=== PATIENT | female | born 1995 | race Caucasian/White ===

== ENCOUNTER 2016-09-14 15:17 | Emergency (ER) | payer BC ==
[~2016-09-14] VITALS: Ht 172.7 cm; Wt 56.2 kg
[2016-09-14] MEDS ORDERED: BIRTH CONTROL (15:25)
[2016-09-14] MEDS ORDERED: NS 1,000 ML IV SCH (16:00)
[2016-09-14] MEDS ORDERED: KETOROLAC 30 MG/ML VIAL (J1885) IV ONE (16:00)
[2016-09-14] MEDS ORDERED: ONDANSETRON 4MG/2ML VIAL (J2405) IV ONE (16:00)
[2016-09-14 17:15] LABS: BASO % 0.6 % (0.0-1.0); EOS % 1.5 % (0.0-3.0); LARGE UNSTAINED CELL # 0.1 K/mm3 (0.0-0.4); LARGE UNSTAINED CELL % 2.3 % (0.0-4.0); LYMPH # 1.6 K/mm3 (1.5-6.5); LYMPH % 46.6 % (24.0-44.0); MEAN CORPUSCULAR HEMOGLOBIN 30.8 pg (27.0-33.0); MEAN CORPUSCULAR HGB CONC 34.2 g/dl (32.0-36.5); MONO # 0.2 K/mm3 (0.0-0.8); MONO % 5.4 % (0.0-5.0); NEUTROPHILS # 1.5 K/mm3 (1.8-7.7); NEUTROPHILS % 43.5 % (36.0-66.0); PLATELET COUNT, AUTOMATED 246 k/mm3 (150-450); WHITE BLOOD COUNT 3.4 K/mm3 (4.0-10.0)
[2016-09-14] MEDS ORDERED: MORPHINE 4 MG/ML 1ML SYRINGE IV ONE (17:30)
[2016-09-14 17:31] LABS: CONTROL LINE HCG INT CTR LINE PRESENT
[2016-09-14 17:39] LABS: ALBUMIN 3.7 GM/DL (3.2-5.2); ALBUMIN/GLOBULIN RATIO 1.09 (1.00-1.93); ALKALINE PHOSPHATASE 47 U/L (45-117); ALT/SGPT 14 U/L (12-78); ANION GAP 7 MEQ/L (8-16); AST/SGOT 9 U/L (15-37); BILIRUBIN,DIRECT < 0.1 MG/DL (0.0-0.2); BILIRUBIN,TOTAL 0.3 MG/DL (0.2-1.0); BLOOD UREA NITROGEN 8 MG/DL (7-18); CALCIUM LEVEL 8.6 MG/DL (8.5-10.1); CARBON DIOXIDE LEVEL 27 MEQ/L (21-32); CHLORIDE LEVEL 109 MEQ/L (98-107); CREATININE FOR GFR 0.69 MG/DL (0.55-1.02); GLOMERULAR FILTRATION RATE > 60.0 (>60); GLUCOSE, FASTING 89 MG/DL (70-105); POTASSIUM SERUM 3.6 MEQ/L (3.5-5.1); SODIUM LEVEL 143 MEQ/L (136-145); TOTAL PROTEIN 7.1 GM/DL (6.4-8.2)
[2016-09-14 17:50] VITALS: BP 113/68
[2016-09-14] MEDS ORDERED: OXYC1TAB23 PO (18:23)
[2016-09-14] MEDS ORDERED: ZOFR4TAB3 PO (18:25)
--- NOTE | 2016-09-15 06:56 | REP ---
PELVIC ULTRASOUND AND ENDOVAGINAL PROBE ULTRASOUND: 09/14/2016. Clinical history: 20-year-old with pelvic pain. Comparison: CT abdomen and pelvis 02/15/2016. Findings: Transabdominal and endovaginal probe images were performed. The bladder measures 8.6 x 6.7 x 4.8 cm. Uterus is anteverted and measures 8.3 x 3.5 x 4.8 cm. It has an endometrial echogenic stripe which is central in location, thin at 1.8 mm and 2.3 mm on the endovaginal probe images. No fluid in endometrial cavity or endocervical canal. Uterus appears homogeneous and without mass or contour abnormality. There is no pelvic free fluid. The right ovary is 3.7 x 2.4 x 2.8 cm. There is a simple cyst in the right ovary 3.5 x 2.5 x 2.1 cm. The left ovary measures 2.2 x 2.2 x 1.8 cm. Doppler interrogation shows resistive index 0.48 on the left and 0.50 on the right. No torsion. Impression: 1. 3.5 x 2.5 cm simple cyst right ovary with normal blood flow to both ovaries and no evidence of torsion. No free fluid or solid mass. 2. The uterus and endometrial stripe normal. Signed by Mynor Rodriguez MD 09/15/2016 04:18 P
[2016-09-15] MEDS ORDERED: VICO5TAB16 PO (15:12)
[2016-09-15] MEDS ORDERED: CIPR500T89 PO (15:14)
== END 2016-09-14 18:34 | disposition home or self-care (01) ==
LOC: M ED 16:41
DX: N83.299 Other ovarian cyst, unspecified side (principal); I51.9 Heart disease, unspecified; Z79.3 Long term (current) use of hormonal contraceptives; Z88.2 Allergy status to sulfonamides
CPT/HCPCS: 76830; 76856; 80048; 80076; 83690; 84703; 85025; 93041; 93976; 96374; 96375; 99284; J1885; J2405

== ENCOUNTER 2016-09-15 10:43 | Emergency (ER) | payer BC ==
[~2016-09-15] VITALS: Ht 172.7 cm; Wt 56.2 kg
[~2016-09-15 10:43] MED LIST: BIRTH CONTROL; OXYC1TAB23 PO; ZOFR4TAB3 PO
[2016-09-15] MEDS ORDERED: ONDANSETRON 4MG/2ML VIAL (J2405) IV ONE (13:15)
[2016-09-15] MEDS ORDERED: NS 1,000 ML IV ONE (13:15)
[2016-09-15] MEDS ORDERED: MORPHINE 4 MG/ML 1ML SYRINGE IV ONE (13:15)
[2016-09-15 13:33] LABS: BASO % 0.3 % (0.0-1.0); EOS # 0.1 K/mm3 (0.0-0.50); EOS % 0.8 % (0.0-3.0); LARGE UNSTAINED CELL # 0.1 K/mm3 (0.0-0.4); LYMPH # 1.7 K/mm3 (1.5-6.5); LYMPH % 23.4 % (24.0-44.0); MEAN CORPUSCULAR HEMOGLOBIN 30.7 pg (27.0-33.0); MEAN CORPUSCULAR HGB CONC 33.5 g/dl (32.0-36.5); MEAN CORPUSCULAR VOLUME 91.7 fl (80.0-96.0); MONO # 0.2 K/mm3 (0.0-0.8); MONO % 3.3 % (0.0-5.0); NEUTROPHILS # 5.2 K/mm3 (1.8-7.7); NEUTROPHILS % 71.3 % (36.0-66.0); PLATELET COUNT, AUTOMATED 274 k/mm3 (150-450); RED CELL DISTRIBUTION WIDTH 12.1 % (11.5-14.5); WHITE BLOOD COUNT 7.2 K/mm3 (4.0-10.0)
[2016-09-15 13:43] LABS: CONTROL LINE HCG INT CTR LINE PRESENT
[2016-09-15 13:50] LABS: ALBUMIN/GLOBULIN RATIO 1.14 (1.00-1.93); ALKALINE PHOSPHATASE 53 U/L (45-117); ALT/SGPT 14 U/L (12-78); ANION GAP 8 MEQ/L (8-16); AST/SGOT 11 U/L (15-37); BILIRUBIN,DIRECT 0.2 MG/DL (0.0-0.2); BILIRUBIN,TOTAL 0.7 MG/DL (0.2-1.0); BLOOD UREA NITROGEN 8 MG/DL (7-18); CARBON DIOXIDE LEVEL 27 MEQ/L (21-32); CHLORIDE LEVEL 107 MEQ/L (98-107); CREATININE FOR GFR 0.78 MG/DL (0.55-1.02); GLOMERULAR FILTRATION RATE > 60.0 (>60); GLUCOSE, FASTING 83 MG/DL (70-105); POTASSIUM SERUM 3.9 MEQ/L (3.5-5.1); SODIUM LEVEL 142 MEQ/L (136-145); TOTAL PROTEIN 7.5 GM/DL (6.4-8.2)
[2016-09-15] MEDS ORDERED: ISOVUE-370 76% 100ML VIAL (Q9967) As Ordered ONE (14:12)
[2016-09-15] MEDS ORDERED: VICO5TAB16 PO (15:12)
--- NOTE | 2016-09-15 15:13 | REP ---
CT ABDOMEN PELVIS WITH IV CONTRAST: 09/15/2016 COMPARISON: Pelvic ultrasound 09/14/2016, CT abdomen and pelvis 02/15/2016. CLINICAL HISTORY: Right-sided abdominal pain. Ultrasound yesterday showed 3.5 cm right ovarian cyst. No free fluid. TECHNIQUE: No oral contrast given per ED request. Given low body fat index, this can make determination of pathology more difficult in the right lower quadrant. The patient received a bolus of 100 mL Isovue 370 and scanning through the abdomen pelvis with coronal and sagittal reconstructions. Bone windows also reviewed. CT ABDOMEN: Lung bases are clear. There is no effusion or infiltrate. The heart is not enlarged. There is no pericardial thickening or effusion and no hiatal hernia. Liver, spleen, gallbladder, pancreas, adrenal glands and the kidneys are normal in appearance. Stomach with a small amount of retained fluid but no mass or wall thickening. Small bowel loops in the abdomen proper are unremarkable. Moderate stool in the right colon with a small amount of stool and gas distending the transverse colon to the splenic flexure, descending colon collapsed. The aorta is without aneurysm or dissection. There is no periaortic or other retroperitoneal pathologic sized lymphadenopathy. Bone windows show lumbar and lower thoracic spine, posterior elements and visualized ribs all intact. Lung window review of all slices shows no perforation or free air. CT PELVIS: No pelvic free air or ascites. The bone windows show SI joints, sacrum, iliac bones, acetabuli, hips and pubic rami grossly intact. No hydronephrosis, hydroureter, renal or ureteral stone. The bladder shows no wall thickening, stone or mass. Small bowel loops in the deep pelvis are fluid filled, slightly dilated suggesting some gastroenteritis or focal ileus. The distal left colon shows collapse, some wall thickening and infiltration of fat adjacent suggesting some mild colitis. This continues into the sigmoid and rectosigmoid. In the deep pelvis there is a trace amount of fluid between the rectum and uterus towards the right, which was not present on ultrasound yesterday. There is a 3 cm cyst in the right adnexa region. Yesterday's cyst measured 3.5 cm on maximum diameter on ultrasound. No ventral or inguinal hernia nor pathologic inguinal adenopathy. Uterus not enlarged. Left ovary unremarkable. Appendix is difficult to clearly identified. No gross inflammatory change, fluid collection, perforation, abscess or mass associated with it. IMPRESSION: 1. Trace free fluid in the cul-de-sac to the right of midline with a 3 cm cyst in the right ovary seen is a 3.5 cm since yesterday on ultrasound. 2. Thickening of the wall and collapse of the distal left colon with sigmoid and rectum also showing some thickening of wall appearance and pericolonic fat and perirectal fat with mild infiltration. This suggests some colitis and proctosigmoiditis. Remainder of the colon intact. 3. Small bowel loops in the pelvis fluid-filled, slightly dilated suggesting ileus. 4. No free air, abscess, perforation or definite evidence of appendicitis. Signed by Mynor Rodriguez MD 09/15/2016 04:26 P
[2016-09-15] MEDS ORDERED: CIPR500T89 PO (15:14)
[2016-09-15] MEDS ORDERED: CIPROFLOXACIN 500 MG TAB PO ONE (15:15)
[2016-09-15 15:17] VITALS: BP 102/62
== END 2016-09-15 15:56 | disposition home or self-care (01) ==
LOC: M ED 12:40
DX: N10 Acute pyelonephritis (principal); N30.90 Cystitis, unspecified without hematuria; N83.291 Other ovarian cyst, right side; I49.9 Cardiac arrhythmia, unspecified; Z88.1 Allergy status to other antibiotic agents; Z88.2 Allergy status to sulfonamides
CPT/HCPCS: 74177; 80048; 80076; 81001; 83690; 84703; 85025; 96361; 96374; 96375; 99282; J2405; Q9967

== ENCOUNTER → 2017-01-23 | Outpatient (REF) | payer BC ==
[~2017-01-23] MED LIST changes: +CIPR-249 PO; +VICO5TAB16 PO
[2017-01-26 10:13] LABS: ENDOMYSIAL ABY IgA Negative (Negative); F002-IgE Milk < 0.10 kU/L (Class 0); F004-IgE Wheat < 0.10 kU/L (Class 0); F013-IgE Peanut < 0.10 kU/L (Class 0); F014-IgE Soybean < 0.10 kU/L (Class 0); F026-IgE Pork < 0.10 kU/L (Class 0); F027-IgE Beef < 0.10 kU/L (Class 0); F245-IgE Egg, Whole < 0.10 kU/L (Class 0); FX02-IgE Food Mix (Sea Foods) Negative (.); TISSUE TRANSGLUTAMINASE IgG <2 U/mL (0-5)
== END ==
LOC: M LABDRAWC 17:46
PROVIDERS: ATTEND Nurse Practitioner Adult Health
DX: R12 Heartburn (principal); R11.0 Nausea; R93.3 Abnormal findings on diagnostic imaging of other parts of digestive tract; K59.00 Constipation, unspecified; K52.9 Noninfective gastroenteritis and colitis, unspecified

== ENCOUNTER → 2017-03-02 | Outpatient (REF) | payer BC ==
[2017-03-02 19:35] LABS: ADD MANUAL DIFFER YES; MEAN CORPUSCULAR HGB CONC 35.2 g/dl (32.0-36.5); MEAN CORPUSCULAR VOLUME 93.7 fl (80.0-96.0); PLATELET COUNT, AUTOMATED 232 k/mm3 (150-450); WHITE BLOOD COUNT 2.6 K/mm3 (4.0-10.0)
[2017-03-02 20:17] LABS: ANION GAP 6 MEQ/L (8-16); BLOOD UREA NITROGEN 11 MG/DL (7-18); CALCIUM LEVEL 9.2 MG/DL (8.5-10.1); CARBON DIOXIDE LEVEL 28 MEQ/L (21-32); CHLORIDE LEVEL 107 MEQ/L (98-107); CREATININE FOR GFR 0.72 MG/DL (0.55-1.02); GLOMERULAR FILTRATION RATE > 60.0 (>60); GLUCOSE, FASTING 99 MG/DL (70-105); POTASSIUM SERUM 3.9 MEQ/L (3.5-5.1); SODIUM LEVEL 141 MEQ/L (136-145)
[2017-03-02 22:32] LABS: EOSINOPHILS 2 % (0-5)
== END ==
LOC: M LAB REF 17:44
PROVIDERS: ATTEND Physician Assistant
DX: Z01.812 Encounter for preprocedural laboratory examination (principal)

== ENCOUNTER → 2017-03-22 | Outpatient (REF) | payer BC ==
[2017-03-22 13:21] LABS: MEAN CORPUSCULAR HEMOGLOBIN 32.9 pg (27.0-33.0); MEAN CORPUSCULAR HGB CONC 35.2 g/dl (32.0-36.5); MEAN CORPUSCULAR VOLUME 93.4 fl (80.0-96.0); RED CELL DISTRIBUTION WIDTH 11.5 % (11.5-14.5); WHITE BLOOD COUNT 3.6 K/mm3 (4.0-10.0)
[2017-03-22 13:48] LABS: BASOPHILS 1 % (0-4); EOSINOPHILS 2 % (0-5)
[2017-03-22 13:49] LABS: ANISOCYTOSIS 1+
== END ==
LOC: M LABDRAWC 11:45
PROVIDERS: ATTEND Physician Assistant
DX: D72.818 Other decreased white blood cell count (principal)

== ENCOUNTER 2017-08-02 10:35 | Emergency (ER) | payer BC ==
[2017-08-02] MEDS ORDERED: ONDANSETRON 4MG/2ML VIAL (J2405) As Ordered (11:17)
[2017-08-02] MEDS ORDERED: MORPHINE 4 MG/ML 1ML SYRINGE As Ordered (11:17)
[2017-08-02] MEDS: MORPHINE 4 MG/ML 1ML SYRINGE IV ×2 (11:31→12:52)
[2017-08-02] MEDS: ONDANSETRON 4MG/2ML VIAL (J2405) IV ×2 (11:31→12:45)
[2017-08-02 11:42] LABS: BASO % 0.8 % (0.0-1.0); EOS # 0.1 10^3/uL (0.0-0.50); EOS % 1.4 % (0.0-3.0); HEMATOCRIT 35.5 % (36.0-47.0); HEMOGLOBIN 12.3 g/dl (12.0-16.0); LYMPH # 1.4 10^3/uL (1.5-6.5); LYMPH % 38.7 % (24.0-44.0); MEAN CORPUSCULAR HEMOGLOBIN 31.8 pg (27.0-33.0); MEAN CORPUSCULAR HGB CONC 34.6 g/dl (32.0-36.5); MEAN CORPUSCULAR VOLUME 91.7 fl (80.0-96.0); MONO # 0.2 10^3/uL (0.0-0.8); MONO % 6.7 % (0.0-5.0); NEUTROPHILS # 1.9 10^3/uL (1.8-7.7); NEUTROPHILS % 52.4 % (36.0-66.0); PLATELET COUNT, AUTOMATED 225 10^3/uL (150-450); RED BLOOD COUNT 3.87 10^6/uL (4.00-5.40); RED CELL DISTRIBUTION WIDTH 11.7 % (11.5-14.5); WHITE BLOOD COUNT 3.6 10^3/uL (4.0-10.0)
[2017-08-02 11:44] LABS: CONTROL LINE UCG INT CTR LINE PRESENT; URINE PREG TEST NEGATIVE (NEGATIVE)
[2017-08-02 11:51] LABS: AMORPHOUS SEDIMENT RFX SMALL (NEGATIVE); KETONE, URINE AUTO RFX NEGATIVE (NEGATIVE); LEUKOCYTE ESTERASE UR AUTO RFX NEGATIVE (NEGATIVE); MUCUS, URINE RFX SMALL (NEGATIVE); NITRITE, URINE AUTO RFX NEGATIVE (NEGATIVE); RBC, URINE AUTO RFX 20 /HPF (0-3); SPECIFIC GRAVITY UR AUTO RFX 1.018 (1.002-1.035); SQUAM EPITHELIAL CELL UR AURFX 1 /HPF (0-6); WBC, URINE AUTO RFX 1 /HPF (0-3)
[2017-08-02 12:03] LABS: ALBUMIN/GLOBULIN RATIO 1.38 (1.00-1.93); ALKALINE PHOSPHATASE 90 U/L (45-117); ALT/SGPT 15 U/L (12-78); ANION GAP 6 MEQ/L (8-16); AST/SGOT 13 U/L (7-37); BILIRUBIN,TOTAL 0.5 MG/DL (0.2-1.0); BLOOD UREA NITROGEN 7 MG/DL (7-18); CALCIUM LEVEL 8.4 MG/DL (8.5-10.1); CARBON DIOXIDE LEVEL 28 MEQ/L (21-32); CHLORIDE LEVEL 109 MEQ/L (98-107); CREATININE FOR GFR 0.59 MG/DL (0.55-1.02); GLOMERULAR FILTRATION RATE > 60.0 (>60); GLUCOSE, FASTING 85 MG/DL (70-105); LIPASE 150 U/L (73-393); POTASSIUM SERUM 3.7 MEQ/L (3.5-5.1); SODIUM LEVEL 143 MEQ/L (136-145); TOTAL PROTEIN 6.9 GM/DL (6.4-8.2)
== END 2017-08-02 14:17 | disposition home or self-care (01) ==
LOC: M ED 10:35
DX: N83.201 Unspecified ovarian cyst, right side (principal); N94.6 Dysmenorrhea, unspecified; Z79.899 Other long term (current) drug therapy; Z88.1 Allergy status to other antibiotic agents; Z88.2 Allergy status to sulfonamides; Z87.42 Personal history of other diseases of the female genital tract; Z98.890 Other specified postprocedural states
CPT/HCPCS: J2405

== ENCOUNTER → 2018-01-19 | Outpatient (CLI) | payer BC | LOC: M CLY 11:13 | DX: M25.531 Pain in right wrist (principal) | CPT/HCPCS: 73110 ==

== ENCOUNTER → 2018-02-22 | Outpatient (REF) | payer BC | LOC: M LAB REF 17:25 | DX: J02.9 Acute pharyngitis, unspecified (principal) | CPT/HCPCS: 87070 ==

== ENCOUNTER → 2018-08-06 | Outpatient (REF) | payer BC ==
[~2018-08-06] MED LIST changes: +IBUP-1022 PO; +MEGE40TA PO; +OMEP40CA2 PO; +PERC5TAB12 PO; +VENL75CA47 PO; +ZOFR4TAB14 PO; -ZOFR4TAB3 PO
[2018-08-06 11:47] LABS: EOS # 0.1 10^3/uL (0.0-0.50); EOS % 2.8 % (0.0-3.0); HEMATOCRIT 37.7 % (36.0-47.0); LYMPH % 51.1 % (24.0-44.0); MEAN CORPUSCULAR HGB CONC 34.5 g/dl (32.0-36.5); MEAN CORPUSCULAR VOLUME 89.8 fl (80.0-96.0); MONO # 0.3 10^3/uL (0.0-0.8); MONO % 7.3 % (0.0-5.0); NEUTROPHILS # 1.5 10^3/uL (1.8-7.7); NEUTROPHILS % 37.8 % (36.0-66.0); PLATELET COUNT, AUTOMATED 265 10^3/uL (150-450)
== END ==
LOC: M LABDRAWC 11:15
PROVIDERS: ATTEND Plastic Surgery Surgery of the Hand
DX: Z01.812 Encounter for preprocedural laboratory examination (principal)

== ENCOUNTER 2018-08-07 06:31 | Day surgery (SDC) | payer SELFPAY ==
[~2018-08-07] VITALS: Ht 175.3 cm; Wt 60.7 kg
[2018-08-07 06:58] LABS: HEMATOCRIT 38.2 % (36.0-47.0); MEAN CORPUSCULAR HEMOGLOBIN 31.1 pg (27.0-33.0); MEAN CORPUSCULAR VOLUME 91.4 fl (80.0-96.0); PLATELET COUNT, AUTOMATED 236 10^3/uL (150-450); RED BLOOD COUNT 4.18 10^6/uL (4.00-5.40); WHITE BLOOD COUNT 3.1 10^3/uL (4.0-10.0)
[2018-08-07 07:05] LABS: URINE PREG TEST NEGATIVE (NEGATIVE)
[2018-08-07] MEDS ORDERED: SCOPOLAMINE 1MG TRANSDERMAL PATCH As Ordered ONE (07:07)
[2018-08-07] MEDS ORDERED: SCOPOLAMINE 1MG TRANSDERMAL PATCH TOP ONE (07:15)
[2018-08-07] MEDS ORDERED: LR 1,000 ML IV ONE (07:15)
[2018-08-07] MEDS ORDERED: LIDOCAINE 2% INJ 100 MG/5 ML SDV (FOR ANES.) As Ordered ONE (07:16)
[2018-08-07] MEDS ORDERED: ROCURONIUM BROMIDE 50 MG/5 ML VIAL As Ordered ONE (07:16)
[2018-08-07] MEDS ORDERED: PROPOFOL 200 MG/20 ML VIAL As Ordered ONE ×2 (07:16→08:15)
[2018-08-07] MEDS ORDERED: fentaNYL 100 MCG/2 ML INJECTION (J3010) As Ordered ONE ×3 (07:17→09:34)
[2018-08-07] MEDS ORDERED: MIDAZOLAM INJ 2 MG/2 ML VIAL (J2250) As Ordered ONE (07:17)
[2018-08-07] MEDS ORDERED: LIDOCAINE 2% W/EPIN INJ 20ML **PRES FREE As Ordered ONE (07:19)
[2018-08-07] MEDS ORDERED: LIDOCAINE W/EPINEPHRINE 1% 20ML VIAL As Ordered ONE (07:19)
[2018-08-07] MEDS ORDERED: ceFAZolin 1GM INJ (J0690 PER 500MG) As Ordered ONE (07:47)
[2018-08-07] MEDS ORDERED: dexameTHASONE 4 MG/ML 1ML VIAL (J1100) As Ordered ONE (07:50)
[2018-08-07] MEDS ORDERED: ONDANSETRON 4MG/2ML VIAL (J2405) As Ordered ONE (07:51)
[2018-08-07] MEDS ORDERED: PHENYLephrine HCL 500 MCG/5 ML (100MCG/ML) SYRINGE (J2370) As Ordered ONE (08:04)
[2018-08-07] MEDS ORDERED: GLYCOPYRROLATE INJ 0.2 MG/ML 2 ML VIAL As Ordered ONE (08:06)
[2018-08-07] MEDS ORDERED: VICO5TAB16 PO (09:11)
--- NOTE | 2018-08-07 09:11 | POST-OPPD ---
Postoperative Procedure Note Date Of Procedure: Aug 07, 2018 PREOPERATIVE DIAGNOSIS: Left forearm tattoo POSTOPERATIVE DIAGNOSIS: same FINDINGS: longitudinally oriented tattoo from antecubital fossa to wrist. PROCEDURE: Removal of left forearm tattoo SURGEON: Dr Wilcox YOUTH OFFICER: none ANESTHESIA: General SPECIMENS: Left forearm tattoo skin ESTIMATED BLOOD LOSS: 5 cc REPLACED: none DRAINS: none COMPLICATIONS: none POSTOPERATIVE CONDITION: Stable CARLOS WILCOX DO Aug 07, 2018 09:10
[2018-08-07] MEDS ORDERED: HYDROmorphone HCL 2 MG/ML 1ML VIAL (J1170) As Ordered ONE (09:19)
[2018-08-07] MEDS ORDERED: NORCO, ANEXSIA 5/325MG TABLET (HYDROcodone/ACETAMINOPHEN) As Ordered ONE ×2 (09:34→10:00)
[2018-08-07] MEDS: NORCO, ANEXSIA 5/325MG TABLET (HYDROcodone/ACETAMINOPHEN) PO PRN ×2 (09:35→10:05)
[2018-08-07] MEDS: fentaNYL 100 MCG/2 ML INJECTION (J3010) IV PRN ×4 (09:37→09:52)
[2018-08-07] MEDS ORDERED: ONDANSETRON 4MG/2ML VIAL (J2405) IV PRN (10:15)
[2018-08-07] MEDS ORDERED: LR 1,000 ML IV SCH (10:15)
[2018-08-07 11:20] VITALS: BP 96/54
--- NOTE | 2018-08-07 20:25 | RO ---
DATE OF PROCEDURE: 08/07/2018 PREPROCEDURE DIAGNOSIS: Left forearm tattoo. POSTPROCEDURE DIAGNOSIS: Left forearm tattoo. OPERATIVE PROCEDURE: Removal of the left forearm tattoo. SURGEON: Linda Tee DO MANAGER IMAGE: None ANESTHESIA: General. SPECIMENS: Send left forearm tattoo skin. ESTIMATED BLOOD LOSS: 5 mL REPLACED: None DRAINS: None COMPLICATIONS: None. POSTOPERATIVE CONDITION: Stable. DESCRIPTION OF PROCEDURE: This is a 22-year-old female who presented to my office. She has a long tattoo. It is a written line starting from the antecubital fossa until the beginning of the wrist. Patient needs to have this removed. She attempted the laser, however, the ink is very deep and it is a full thickness, so she is going to have to have it excised. All the risks, benefits, and alternatives were discussed with the patient and she is ready to proceed. Today, informed consent was confirmed, the patient is marked in preoperative holding area. She was brought into the operating room and placed in the supine position. General anesthesia was induced. Preoperative antibiotics given. Compression stockings placed on the lower calves. She is prepped and draped in the usual sterile fashion. We outlined the tattoo throughout where the incision is going to be and started our incision on inferior or ulnar side of the tattoo carried out with a #10 blade. Then, the flap was raised superiorly and radially to undermine the skin where the tattoo is in full length. Hemostasis obtained using electrocautery. Then, the radial part of the tattoo was excised as close to the ink as possible to minimize the amount of tissue excised and that tissue was sent to pathology. Then, the edges were undermined inferiorly, laterally, and superiorly and were reapproximated with no tension and small excess tissue is trimmed. The full incision is closed in layers with interrupted #3-0 Monocryl sutures and #4-0 Monocryl sutures. No tension on the skin at any point. Steri-Strips, bulky dressing and an Satish were placed.
== END 2018-08-07 11:26 | disposition home or self-care (01) ==
LOC: M SDC 06:31
PROVIDERS: ATTEND Plastic Surgery Surgery of the Hand
DX: L81.8 Other specified disorders of pigmentation (principal); L90.5 Scar conditions and fibrosis of skin; R00.0 Tachycardia, unspecified; K21.9 Gastro-esophageal reflux disease without esophagitis; F42.9 Obsessive-compulsive disorder, unspecified; Z88.2 Allergy status to sulfonamides; Z91.030 Bee allergy status; Z91.048 Other nonmedicinal substance allergy status; Z79.899 Other long term (current) drug therapy
CPT/HCPCS: 11406; 12035; 36415; 84703; 85027; 88302; J0690; J1100; J1170; J2250; J2370; J2405; J3010

== ENCOUNTER → 2018-11-13 | Outpatient (REF) | payer BC ==
[~2018-11-13] MED LIST changes: -VICO5TAB16 PO; +VICO5TAB17 PO
[2018-11-14 12:19] LABS: C REACTIVE PROTEIN QUANTITATIV < 0.30 MG/DL (0.00-0.30); RHEUMATOID FACTOR QUANT < 10.0 IU/ML (<15.0)
[2018-11-14 12:25] LABS: TOTAL 25(OH) VITAMIN D 10.8 NG/ML (30.0-100.0)
[2018-11-15 14:51] LABS: ANTINUCLEAR ANTIBODIES DIRECT Negative (Negative); Lyme Disease IgG/IgM Antibodie <0.91 ISR (0.00-0.90); Lyme Disease IgM Ab Quantitati <0.80 index (0.00-0.79)
[2018-11-16 00:06] LABS: CYCLIC CITRULLINATED PEPTIDE 7 units (0-19)
== END ==
LOC: M LABDRAWC 11:27
PROVIDERS: ATTEND Family Medicine
DX: M25.562 Pain in left knee (principal)

== ENCOUNTER → 2018-11-13 | Outpatient (CLI) | payer BC ==
--- NOTE | 2018-11-14 01:25 | REP ---
Clinical: Nontraumatic left knee pain Technique: AP, lateral, bilateral oblique and sunrise views. Findings: The osseous structures and joint spaces are intact and normal. There is no evidence for acute fracture or dislocation. No joint effusion is appreciated. Surrounding soft tissues are unremarkable. No subcutaneous emphysema or radiodense foreign body. Impression: Normal examination.
== END ==
LOC: M CLY 15:25
PROVIDERS: ATTEND Family Medicine
DX: M25.562 Pain in left knee (principal)

== ENCOUNTER → 2019-10-31 | Outpatient (REF) | payer BC ==
[~2019-10-31] MED LIST changes: -OMEP40CA2 PO; +OMEP40CA97 PO
[2019-10-31 12:28] LABS: HEMOGLOBIN A1c 5.1 %
[2019-10-31 13:02] LABS: BLOOD UREA NITROGEN 9 MG/DL (7-18); CALCIUM LEVEL 9.4 MG/DL (8.5-10.1); CARBON DIOXIDE LEVEL 28 MEQ/L (21-32); CHLORIDE LEVEL 105 MEQ/L (98-107); CREATININE FOR GFR 0.82 MG/DL (0.55-1.30); GLOMERULAR FILTRATION RATE > 60.0 (>60); GLUCOSE, FASTING 81 MG/DL (70-100); POTASSIUM SERUM 4.1 MEQ/L (3.5-5.1); SODIUM LEVEL 138 MEQ/L (136-145)
== END ==
LOC: M LABDRAWC 11:41
PROVIDERS: ATTEND Physician Assistant
DX: E16.2 Hypoglycemia, unspecified (principal)

== ENCOUNTER → 2020-09-24 | Outpatient (REF) | payer BC ==
[2020-09-24 11:27] LABS: BASO % 1.2 % (0.0-1.0); EOS # 0.1 10^3/uL (0.0-0.5); EOS % 3.2 % (0.0-3.0); HEMATOCRIT 38.4 % (36.0-47.0); HEMOGLOBIN 13.1 g/dl (12.0-15.5); LYMPH # 1.6 10^3/uL (1.5-5.0); LYMPH % 46.5 % (24.0-44.0); MEAN CORPUSCULAR HEMOGLOBIN 31.5 pg (27.0-33.0); MEAN CORPUSCULAR HGB CONC 34.1 g/dl (32.0-36.5); MEAN CORPUSCULAR VOLUME 92.3 fl (80.0-96.0); MONO # 0.3 10^3/uL (0.0-0.8); MONO % 7.5 % (2.0-8.0); NEUTROPHILS # 1.4 10^3/uL (1.5-8.5); NEUTROPHILS % 41.3 % (36.0-66.0); PLATELET COUNT, AUTOMATED 295 10^3/uL (150-450); RED BLOOD COUNT 4.16 10^6/uL (4.00-5.40); WHITE BLOOD COUNT 3.5 10^3/uL (4.0-10.0)
[2020-09-24 12:42] LABS: ALBUMIN 4.2 GM/DL (3.2-5.2); ALT/SGPT 12 U/L (12-78); BILIRUBIN,TOTAL 0.3 MG/DL (0.2-1.0); BLOOD UREA NITROGEN 11 MG/DL (7-18); CALCIUM LEVEL 9.1 MG/DL (8.5-10.1); CARBON DIOXIDE LEVEL 30 MEQ/L (21-32); CHLORIDE LEVEL 107 MEQ/L (98-107); CHOLESTEROL LEVEL 171 MG/DL (<200); CHOLESTEROL RISK RATIO 2.375 (<5); CREATININE FOR GFR 0.83 MG/DL (0.55-1.30); FREE T4 0.77 NG/DL (0.76-1.46); GLOMERULAR FILTRATION RATE > 60.0 (>60); GLUCOSE, FASTING 89 MG/DL (70-100); HDL CHOLESTEROL 72 MG/DL (>40); LDL CHOLESTEROL 87 MG/DL (<100); NON-HDL-C 99 MG/DL; POTASSIUM SERUM 4.1 MEQ/L (3.5-5.1); SODIUM LEVEL 140 MEQ/L (136-145); TOTAL 25(OH) VITAMIN D 17.5 NG/ML (30.0-100.0); TOTAL PROTEIN 7.3 GM/DL (6.4-8.2); TRIGLYCERIDES LEVEL 60 MG/DL (<150)
== END ==
LOC: M LABDRAWC 11:07
PROVIDERS: ATTEND Family Medicine
DX: Z13.29 Encounter for screening for other suspected endocrine disorder (principal); Z13.0 Encounter for screening for diseases of the blood and blood-forming organs and certain disorders involving the immune mechanism; E55.9 Vitamin D deficiency, unspecified; Z13.220 Encounter for screening for lipoid disorders

== ENCOUNTER → 2021-10-20 | Outpatient (CLI) | payer BC ==
[~2021-10-20] MED LIST changes: +OMEP40CA4 PO; -OMEP40CA97 PO
[2021-10-20 08:21] LABS: BASO % 1.2 % (0.0-1.0); EOS # 0.1 10^3/uL (0.0-0.5); EOS % 2.4 % (0.0-3.0); HEMATOCRIT 35.1 % (36.0-47.0); HEMOGLOBIN 12.3 g/dl (12.0-15.5); LYMPH # 1.3 10^3/uL (1.5-5.0); LYMPH % 38.2 % (24.0-44.0); MEAN CORPUSCULAR HEMOGLOBIN 32.2 pg (27.0-33.0); MEAN CORPUSCULAR VOLUME 91.9 fl (80.0-96.0); MONO # 0.3 10^3/uL (0.0-0.8); MONO % 7.6 % (2.0-8.0); NEUTROPHILS # 1.7 10^3/uL (1.5-8.5); NEUTROPHILS % 50.3 % (36.0-66.0); PLATELET COUNT, AUTOMATED 232 10^3/uL (150-450); RED BLOOD COUNT 3.82 10^6/uL (4.00-5.40); WHITE BLOOD COUNT 3.4 10^3/uL (4.0-10.0)
[2021-10-20 09:02] LABS: ALT/SGPT 15 U/L (12-78); BILIRUBIN,TOTAL 0.4 MG/DL (0.2-1.0); BLOOD UREA NITROGEN 10 MG/DL (7-18); CALCIUM LEVEL 9.1 MG/DL (8.5-10.1); CARBON DIOXIDE LEVEL 31 MEQ/L (21-32); CHLORIDE LEVEL 108 MEQ/L (98-107); CHOLESTEROL LEVEL 156 MG/DL (<200); CREATININE FOR GFR 0.72 MG/DL (0.55-1.30); FREE T4 0.83 NG/DL (0.76-1.46); GLOMERULAR FILTRATION RATE > 60.0 (>60); GLUCOSE, FASTING 83 MG/DL (70-100); HDL CHOLESTEROL 78 MG/DL (>40); LDL CHOLESTEROL 70 MG/DL (<100); NON-HDL-C 78 MG/DL; POTASSIUM SERUM 3.8 MEQ/L (3.5-5.1); SODIUM LEVEL 141 MEQ/L (136-145); TRIGLYCERIDES LEVEL 40 MG/DL (<150)
[2021-10-20 11:47] LABS: TOTAL 25(OH) VITAMIN D 10.1 NG/ML (30.0-100.0)
== END ==
LOC: M LAB 07:44
PROVIDERS: ATTEND Family Medicine
DX: E55.9 Vitamin D deficiency, unspecified (principal); Z13.29 Encounter for screening for other suspected endocrine disorder; Z13.220 Encounter for screening for lipoid disorders; Z13.0 Encounter for screening for diseases of the blood and blood-forming organs and certain disorders involving the immune mechanism

== ENCOUNTER → 2022-10-21 | Outpatient (REF) | payer BC ==
[~2022-10-21] MED LIST changes: -MEGE40TA PO; +MEGE40TA3 PO
[2022-10-21 14:12] LABS: BASO % 1.2 % (0.0-1.0); EOS # 0.1 10^3/uL (0.0-0.5); EOS % 1.5 % (0.0-3.0); HEMATOCRIT 39.4 % (36.0-47.0); HEMOGLOBIN 13.2 g/dl (12.0-15.5); LYMPH # 1.3 10^3/uL (1.5-5.0); LYMPH % 39.1 % (24.0-44.0); MEAN CORPUSCULAR HEMOGLOBIN 31.5 pg (27.0-33.0); MEAN CORPUSCULAR HGB CONC 33.5 g/dl (32.0-36.5); MONO # 0.3 10^3/uL (0.0-0.8); MONO % 7.7 % (2.0-8.0); NEUTROPHILS # 1.7 10^3/uL (1.5-8.5); NEUTROPHILS % 50.2 % (36.0-66.0); PLATELET COUNT, AUTOMATED 273 10^3/uL (150-450); RED BLOOD COUNT 4.19 10^6/uL (4.00-5.40); WHITE BLOOD COUNT 3.4 10^3/uL (4.0-10.0)
[2022-10-21 14:38] LABS: FREE T4 0.89 NG/DL (0.89-1.76)
[2022-10-21 14:39] LABS: TOTAL 25(OH) VITAMIN D 10.2 NG/ML (20.0-100.0)
[2022-10-21 14:40] LABS: ALBUMIN 4.3 G/DL (3.2-5.2); ALKALINE PHOSPHATASE 65 U/L (46-116); ALT/SGPT 16 U/L (7.0-40); AST/SGOT 11 U/L (<34); BILIRUBIN,TOTAL 0.7 MG/DL (0.3-1.2); BLOOD UREA NITROGEN 12 MG/DL (9-23); CALCIUM LEVEL 9.1 MG/DL (8.5-10.1); CARBON DIOXIDE LEVEL 27 MMOL/L (20-31); CHLORIDE LEVEL 105 MMOL/L (98-107); CHOLESTEROL LEVEL 163 MG/DL (<200); CHOLESTEROL RISK RATIO 2.07 (<5); CREATININE FOR GFR 0.76 MG/DL (0.55-1.30); GLOMERULAR FILTRATION RATE > 60.0 (>60); GLUCOSE, FASTING 75 MG/DL (60-100); HDL CHOLESTEROL 78.7 MG/DL (>40); LDL CHOLESTEROL 73.5 MG/DL (<100); NON-HDL-C 84.3 MG/DL; POTASSIUM SERUM 4.2 MMOL/L (3.5-5.1); SODIUM LEVEL 140 MMOL/L (136-145); TOTAL PROTEIN 7.2 G/DL (5.7-8.2); TRIGLYCERIDES LEVEL 54 MG/DL (<150)
[2022-10-21 14:41] LABS: THYROID STIMULATING HORMONE 2.163 uIU/ML (0.55-4.78)
== END ==
LOC: M LABDRAWC 11:59
PROVIDERS: ATTEND Family Medicine
DX: Z13.29 Encounter for screening for other suspected endocrine disorder (principal); Z13.220 Encounter for screening for lipoid disorders; E55.9 Vitamin D deficiency, unspecified

== ENCOUNTER → 2024-05-06 | Outpatient (CLI) | payer BC | LOC: M WHC 14:27 | PROVIDERS: ATTEND Family Medicine | DX: Z12.31 Encounter for screening mammogram for malignant neoplasm of breast (principal); Z80.3 Family history of malignant neoplasm of breast ==

== ENCOUNTER → 2025-04-24 | Outpatient (REF) ==
[~2025-04-24] MED LIST changes: -IBUP-1022 PO; +IBUP600T42 PO
== END ==
LOC: M LAB 12:06
PROVIDERS: ATTEND Family Medicine
DX: Z00.00 Encounter for general adult medical examination without abnormal findings (principal)

== ENCOUNTER → 2025-05-27 | Outpatient (CLI) | payer BC | LOC: M WHC 16:29 | PROVIDERS: ATTEND Family Medicine | DX: Z12.31 Encounter for screening mammogram for malignant neoplasm of breast (principal); Z80.3 Family history of malignant neoplasm of breast; R92.333 Mammographic heterogeneous density, bilateral breasts ==